=== PATIENT | male | born 1990 | race Caucasian/White ===

== ENCOUNTER 2017-09-10 21:03 | Emergency (ER) | payer SELFPAY ==
[~2017-09-10] VITALS: Ht 182.9 cm; Wt 70.0 kg
[2017-09-10 21:19] VITALS: BP 130/82; PULSE 93; RESP 16; TEMP 99; O2SAT 97
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
[2017-09-10] MEDS ORDERED: IBUPROFEN 600 MG TAB PO ONE (23:30)
[2017-09-10] MEDS ORDERED: LIDOCAINE HCL 1% 50 ML VIAL INFIL ONE (23:30)
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
[2017-09-11] MEDS ORDERED: TYLE325T PO (00:43)
== END 2017-09-11 01:33 | disposition home or self-care (01) ==
LOC: NEPC 21:03
DX: S01.81XA Laceration without foreign body of other part of head, initial encounter (principal); S03.2XXA Dislocation of tooth, initial encounter; W50.1XXA Accidental kick by another person, initial encounter
CPT/HCPCS: 70486; 99283